=== PATIENT | male | born 1975 | race Caucasian/White ===

== ENCOUNTER → 2020-01-05 14:38 | Outpatient (BNVA) | payer BC, SELFPAY | PROVIDERS: Visit Provider Emergency Medicine | DX: J02.9 Acute pharyngitis, unspecified (principal) | CPT/HCPCS: 87880 ==

== ENCOUNTER 2020-09-30 13:42 | Outpatient (CLI) | payer BC, SELFPAY ==
[2020-09-30 16:02] LABS: Basophils % 0.7 %; Eosinophils # 0.2 10^3/uL (0.0-0.8); Eosinophils % 2.5 %; Hematocrit 44.3 % (42.0-52.0); Hemoglobin 15.6 g/dL (11.7-16.6); Lymphocytes # 1.8 10^3/uL (0.8-4.8); Lymphocytes % 29.4 %; Mean Corpuscular HGB Conc 35.2 g/dL (30.0-36.0); Mean Corpuscular Hemoglobin 30.4 pg (28.0-34.0); Mean Corpuscular Volume 86.4 fL (80-94); Mean Platelet Volume 9.9 fL (7.4-10.4); Monocytes # 0.3 10^3/uL (0.2-0.9); Monocytes % 5.4 %; Neutrophils # 3.76 10^3/uL (1.8-7.7); Neutrophils % 61.7 %; Nucleated Red Blood Cells % 0 %; Platelet Count 141 10^3/cmm (130-400); Red Blood Count 5.13 10^6/uL (4.1-5.3); Red Cell Distribution Width 13.2 % (12.1-15.1); White Blood Count 6.1 10^3/uL (4.0-10.0)
[2020-09-30 16:12] LABS: LAB Peripheral Smear Sent for Review
[2020-09-30 16:15] LABS: INR 1.12 (0.8-1.2)
[2020-09-30 16:16] LABS: Partial Thromboplastin Time 36.9 SECONDS (23.9-36.7)
--- NOTE | 2020-09-30 19:46 | ONC CON_ITS ---
Dr. Jaramillo New Patient Note Patient: Mike Lugo Unit #: [id number]: 1975 Dicatated By: Isaac Jaramillo M.D.Date of Visit: Sep 30, 2020 Onc MED New Patient/Consult Referring Physician: Dr. Richie West M.D. Chief Complaint: Nosebleeds. History of Present Illness: This is a 45-year-old man who is seen in regard to epistaxis and abnormal coagulation studies. He has longstanding allergic rhinitis and mild asthma. He has had nosebleeds associated with this which have been going on for a long time, but infrequently and never bad. Beginning about 2-1/2 months ago he began having epistaxis on a daily basis. This started when he was required to wear a facemask at work. The epistaxis has since then been occurring much more frequently and they have been more prolonged, lasting up to 25 minutes. They have involved both nostrils. He was seen at Dr. West's office. They apparently did attempt a cauterization procedure, but it was not successful in stopping the epistaxis. He then had laboratory evaluation on 08/12/2020, including a CBC, coagulation studies, and a von Willebrand factor panel. His CBC was significant for mild thrombocytopenia, platelet count 107,000. Hemoglobin was normal at 15.6 g with hematocrit 45.9%. The white blood cell count was 4800. The red cell indices were normal. His pro time was normal at 11.4 seconds with PTT slightly prolonged at 36 seconds, normal range 22 to 34 seconds. The remainder of the von Willebrand factor screen was normal with the factor VIII activity 84%, von Willebrand factor antigen greater than 300%, and ristocetin cofactor 168%. A von Willebrand factor multimer analysis also was normal. He has been feeling fine. His main complaint other than the epistaxis is that he was diagnosed with epididymitis of the left testicle 4 months ago. It is now getting better after recently completing a second course of antibiotic therapy. He has been under the care of a urologist in [place]. He indicates that the epistaxis is worse mainly just when he has to wear his facemask. He has had no other bleeding manifestations. He indicates he does not bruise easily and he does not have excessive bleeding with cuts or other minor injuries. He has had no abnormal bleeding with any of his prior surgeries. There is no history of bleeding disorders in the family. He indicates that he has been taking ibuprofen for pain associated with the epididymitis. Past Medical History: His medical history includes allergic rhinitis and asthma. Past Surgical History: His surgical/procedural history includes appendectomy, sinus surgery, and vasectomy. Medications: Cetirizine HCl 1 Tablet (of 5 mg) Oral daily Allergies: Latex Gloves Social History: Mr. Lugo is . He is a non-smoker. He has just occasional alcohol use. Family History: Both parents are living and in good health, father at age 72 and mother at age 67. A 41-year-old sister also is in good health. His maternal grandfather had heart disease. There is no history of bleeding disorders in the family. Review Of Symptoms: Constitutional - He has good energy and activity tolerance. Appetite is good. He has lost a little weight. No fever recently. No night sweats or hot flashes. ECOG score is 0, Eyes - No change in vision, ENMT - He has hearing loss and tinnitus. He has chronic allergy related sinus symptoms and for a long time he has been prone to having nosebleeds, but never bad. Recently the nosebleeds have been worse, mainly when he wears a facemask. No mouth sores. No sore throat or difficulty swallowing, Hematologic/Lymphatic - No abnormal bruising. He has had no other bleeding manifestations, Respiratory - No shortness of breath. He has cough with the sinus drainage. No pleuritic pain or hemoptysis, Cardiovascular - No angina pain. No palpitations, Gastrointestinal - No nausea or vomiting. No heartburn or acid reflux. No diarrhea or constipation. No blood in the stool or black stools, Genitourinary (M) - He has been getting treatment for epididymitis of the left testicle. He recently completed his second course of antibiotic therapy. No dysuria or hematuria. No urinary frequency. He does get up 2 or 3 times at night. No urgency or incontinence, Musculoskeletal - He has some joint pain, mainly in the ankles, Integumentary - No skin rash, Neurologic - He sometimes has headache with his allergies. No dizziness. No numbness or tingling. No other focal neurologic symptoms, Psychiatric - No anxiety or depression. No insomnia. Vital Signs: Performed on Sep 30, 2020 14:48: 2, 39.83 (HIGH), 2.45 sq.m, 71.00 in, 97 %, 79 /min, 20 /min, 175/89 mm(hg) (HIGH), 98.3 F (LOW), and 285.6 lbs (HIGH). Physical Examination: Constitutional - He appears to be in good general health, Eyes - Sclerae nonicteric. Conjunctivae clear, ENMT - No lesions noted in the oral cavity, Neck - No mass or thyromegaly, Hematologic/Lymphatic - No cervical, clavicular, or axillary adenopathy, Respiratory - Lungs are clear with good air movement bilaterally, Cardiovascular - Heart rhythm is regular. There is no murmur, gallop, or rub noted, Abdomen - Soft and non-tender. Liver and spleen are not enlarged. There is no abdominal mass or ascites noted and there is no inguinal adenopathy, Back/Spine - No spine or CVA tenderness noted, Extremities - There are mild venous stasis changes bilaterally, but there is no edema. Dorsalis pedis pulses are palpable bilaterally, more prominent on the left than the right. There are no petechiae noted and there are no ecchymosis or purpuric lesions, Integumentary - No rashes. No suspicious skin lesions noted, Neurologic - No focal neurologic deficits noted. Impression: 1. Patient with frequent epistaxis. By clinical evaluation, he does not appear to have an abnormal bleeding tendency, I think this is still most likely related to local issues with the nasal mucosa. 2. His laboratory studies did show slightly prolonged PTT and mild thrombocytopenia. The cause/clinical significance of these abnormalities is uncertain, but again I see no clinical evidence for an underlying bleeding disorder. 3. He has allergic rhinitis and mild asthma. 4. He recently completed treatment for epididymitis of the left testicle. Plan: The laboratory findings and clinic complications were reviewed with the patient. I will check additional laboratory studies today which will include repeat CBC, pro time, and PTT. I will request 1:1 mixing studies if the coagulation studies are prolonged. I also will review the blood smear. He will have further evaluation as indicated. In the meantime, he is advised that ibuprofen or other nonsteroidal anti-inflammatory agents may potentially worsen his epistaxis. Signed By: Isaac Jaramillo M.D. <<Signature on File>>
== END 2020-09-30 13:43 | disposition home or self-care (01) ==
LOC: ONCMED 13:45
PROVIDERS: Visit Provider Internal Medicine Medical Oncology
DX: R04.0 Epistaxis (principal); J45.909 Unspecified asthma, uncomplicated
CPT/HCPCS: 36415; 85025; 85610; 85730; 85732; 99204

== ENCOUNTER → 2023-09-19 13:55 | Outpatient (BNVA) | payer BC, SELFPAY | PROVIDERS: Visit Provider Podiatrist Foot & Ankle Surgery | DX: M79.671 Pain in right foot (principal); M79.672 Pain in left foot; M76.822 Posterior tibial tendinitis, left leg | CPT/HCPCS: 73630 ==